=== PATIENT | female | born 1935 | race Caucasian/White ===

== ENCOUNTER → 2016-08-29 | Outpatient (CLI) | payer MEDICARE, OTHER ==
--- NOTE | 2016-08-29 14:14 | RADRPT ---
PROCEDURE: XR Knees. CLINICAL INDICATION: Bilateral knee pain. TECHNIQUE: Total of eight views. Weightbearing frontal, oblique, and lateral views of the both kn ees. Patellar views of both knees. COMPARISON: Left knee radiographs dated 02/22/2014. FINDINGS: There is no fracture or dislocation. There is no joint effusion. There are degenerative changes with osteophytes arising from all 3 joint compartment margins. There is bilateral medial joint compartment narrowing, subarticular sclerosis, and deformity with right w orse than left. There is bilateral chondrocalcinosis. There is no lytic or blastic lesion. There is no radiopaque foreign body. IMPRESSION: 1. 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 RPTAT: QQ .Cleveland Sarah MD, MD Date Time Electronically viewed and signed by .Cleveland Sarah MD, on 08/29/2016 14:13 .R/
== END | disposition home or self-care (01) ==
LOC: HKI 09:21
PROVIDERS: ATTEND Orthopaedic Surgery
DX: M17.0 Bilateral primary osteoarthritis of knee (principal); M11.262 Other chondrocalcinosis, left knee; M11.261 Other chondrocalcinosis, right knee
CPT/HCPCS: J7327